=== PATIENT | female | born 1995 | race African-American/Black ===

== ENCOUNTER 2016-09-08 16:52 | Emergency (ER) | payer SELFPAY ==
[~2016-09-08] VITALS: Ht 170.2 cm; Wt 69.0 kg
[~2016-09-08 16:52] MED LIST: PHEN300C6 PO; PREN-88 PO
[2016-09-08 17:04] VITALS: BP 127/68
== END 2016-09-08 19:00 | disposition left against medical advice (07) ==
LOC: ER 16:52
DX: R10.9 Unspecified abdominal pain (principal); Z53.21 Procedure and treatment not carried out due to patient leaving prior to being seen by health care provider